=== PATIENT | male | born 1960 | race African-American/Black ===

== ENCOUNTER 2021-10-24 15:21 | Emergency (ER) | payer SELFPAY ==
[~2021-10-24] VITALS: Ht 175.3 cm; Wt 70.0 kg
[2021-10-24 16:42] LABS: BASOPHILS % 0.6 % (0.0-2.0); EOSINOPHILS % 1.4 % (0.0-5.0); HEMATOCRIT. 31.2 % (42.0-52.0); HEMOGLOBIN. 10.9 g/dL (14.0-18.0); LYMPHOCYTES % 22.6 % (20.0-50.0); MEAN CORPUSCULAR HEMOGLOBIN 31.9 pg (28.0-32.0); MEAN CORPUSCULAR VOLUME 91.8 fL (80.0-94.0); MEAN PLATELET VOLUME 7.1 fl (7.4-10.4); MONOCYTES % 8.1 % (2.0-8.0); NEUTROPHILS % 67.3 % (40.0-76.0); PLATELET 399 x1000/uL (130-400)
[2021-10-24 16:49] LABS: CHLORIDE 102 mEq/L (98-107)
[2021-10-24] MEDS ORDERED: AZIT250T MT (17:22)
[2021-10-24] MEDS ORDERED: NAPR-681 PO ×3 (17:22→17:55)
[2021-10-24] MEDS ORDERED: DEXTL PO ×3 (17:22→17:55)
[2021-10-24] MEDS ORDERED: ALBU18HF2 IH ×3 (17:22→17:55)
[2021-10-24] MEDS: CEFTRIAXONE SODIUM 1 G/VIAL IM STA (17:31)
[2021-10-24] MEDS: METHYLPREDNISOLONE SOD SUCC 125 MG/2 ML VIAL IM NR (17:31)
[2021-10-24] MEDS: LIDOCAINE HCL 1% 20ML VIAL (Pyxis) INJ INFIL STA (17:31)
[2021-10-24] MEDS ORDERED: LEVO500T89 MT (17:55)
[2021-10-24 18:20] VITALS: BP 152/74
== END 2021-10-24 18:21 | disposition home or self-care (01) ==
LOC: ER 15:21
DX: J18.9 Pneumonia, unspecified organism (principal); Z20.822 Contact with and (suspected) exposure to COVID-19
CPT/HCPCS: 36415; 71045; 80048; 85025; 87426; 96374; 96375; 99284; J0696; J2930; J3490